=== PATIENT | female | born 1965 | race Two or more races ===

== ENCOUNTER → 2024-07-14 | Outpatient (CLI) | payer MEDICARE, MEDICAID, SELFPAY ==
--- NOTE | 2024-07-14 16:17 | XR_ITS ---
Examination: Wrist, right 3 views Technique: Wrist AP, oblique, lateral 3 views Date and time of exam: July 14, 2024 1618 hrs. Indications: Wrist pain and swelling beginning 5 weeks ago. Findings: Prominent osteopenia Mild narrowing radiocarpal joint No fracture or dislocation Mild to moderate osteoarthritis first carpometacarpal joint Impression: Moderate osteoarthritis first carpometacarpal joint
--- NOTE | 2024-07-14 16:17 | XR_ITS ---
Examination: Hand, right 3 views Technique: Hand AP, oblique, lateral 3 views Date and time of exam: July 14, 2024 1618 hrs. Indications: Pain and swelling involving the right index finger beginning 5 weeks ago. Findings: Prominent osteopenia Mild to moderate osteoarthritis distal interphalangeal joints second through fifth digits No fracture or cortical bone destruction involving the second digit No opaque foreign bodies Impression: No fracture or cortical bone destruction involving the second digit
== END | disposition home or self-care (01) ==
PROVIDERS: Referring Provider Nurse Practitioner Gerontology; Visit Provider Nurse Practitioner Gerontology
DX: M18.11 Unilateral primary osteoarthritis of first carpometacarpal joint, right hand (principal)
CPT/HCPCS: 73110; 73130